=== PATIENT | female | born 1995 | race Caucasian/White ===

== ENCOUNTER 2022-06-20 16:25 | Emergency (ER) | payer MEDICAID ==
[~2022-06-20] VITALS: Ht 167.6 cm; Wt 72.6 kg
[2022-06-20] MEDS ORDERED: MAG HYDROX/AL HYDROX/SIMETH 30 ML LIQUID UDC PO ONE (18:15)
[2022-06-20] MEDS ORDERED: FAMOTIDINE 20 MG TABLET PO ONE (18:15)
--- NOTE | 2022-06-20 18:28 | NUR ---
made aware of pt just walking out of the door.
--- NOTE | 2022-06-20 18:28 | NUR ---
PT Left AMA without signing AMA form.
== END 2022-06-20 18:30 | disposition left against medical advice (07) ==
LOC: ER 16:25
DX: Z53.21 Procedure and treatment not carried out due to patient leaving prior to being seen by health care provider (principal)
CPT/HCPCS: A4663